=== PATIENT | male | born 1960 | race Caucasian/White ===

== ENCOUNTER 2016-09-11 01:00 | Inpatient (IN) | payer SELFPAY ==
--- NOTE | 2016-09-11 01:38 | ED Physician Documentation ---
General Adult - HISTORIAN Historian: patient - HPI Stated Complaint: left index finger injury Chief Complaint: General Adult Onset: days ago (4) Timing: still present Severity: moderate Further Comments: yes (Pt is a 56 yo male with an infection in his L index finger. Pt got a splinter in his finger 4 days ago and finger has become increasingly swollen and painful since then. Pt is concerned about red streaks from his index finger up to his elbow. No constitutional sx. No fever, no n/v, ) - ROS CONST: no problems EYES/ENT: none CVS/RESP: none GI/: none MS/SKIN/LYMPH: other (infection in L index finger) - PAST HX Past History: none Allergies/Adverse Reactions: Allergies Allergy/AdvReac Type Severity Reaction Status Date / Time No Known Allergies Allergy Verified 02/24/16 15:42 Home Medications: Ambulatory Orders Medication Instructions Recorded NK [NK] 02/24/16 - SOCIAL HX Smoking History: non-smoker - FAMILY HX Family History: No - VITAL SIGNS Vital Signs: Vital Signs Temp Pulse Resp BP Pulse Ox 97.7 F 67 16 136/88 99 09/11/16 01:01 09/11/16 01:01 09/11/16 01:01 09/11/16 01:01 09/11/16 01:01 - REVIEWED ASSESSMENTS Nursing Assessment Reviewed: Yes Vitals Reviewed: Yes Progress - Progress Progress: wbc=14.0 Infection L index finger, streaking to elbow Admit to Dr. Flynn. Will start Vancomycin. ED Results Lab/Radiology - Orders Orders: ED Orders Category Date Time Status BLOOD CULTURE Stat Lab 09/11/16 Ordered CBC/PLATELET/DIFF Routine Lab 09/11/16 Ordered CMP Routine Lab 09/11/16 Ordered Doxycycline Monohydrate [Vibramycin] Med 09/11/16 01:16 Discontinued 100 mg PO NOW ONE General Adult Physical Exam - PHYSICAL EXAM GENERAL APPEARANCE: no distress NECK: normal inspection, supple RESPIRATORY: no resp distress, chest non-tender, breath sounds normal CVS: reg rate & rhythm, heart sounds normal BACK: normal inspection SKIN: other (swelling in L index finger, with streaking from tip of finger to elbow.) EXTREMITIES: normal range of motion, tenderness NEURO: oriented X3, motor nml, sensation nml Discharge Clincal Impression: L index finger infection with sepsis Referrals: Primary Doctor,No [Primary Care Provider] - Home Medications: Ambulatory Orders NK [NK] 02/24/16 Condition: Stable Disposition: 09 ADMITTED INPATIENT Decision to Admit: [id number] Decision Time: 02:54
[2016-09-11 01:58] LABS: BASOPHILS % 0.4 (0.0-1.5); EOSINOPHILS % 1.2 % (0.0-6.8); LYMPHOCYTES # 2.2 # k/uL (0.6-4.0); MEAN CORPUSCULAR HEMOGLOBIN 30.6 pg (28.0-34.0); MONOCYTES % 6.9 % (0.0-11.0); NEUTROPHILS # 10.4 # k/uL (1.4-7.7)
[2016-09-11 02:12] LABS: eGFR (African) > 60; eGFR (Non-African) > 60
[2016-09-11] MEDS ORDERED: PHARMACY KEY 1 EACH EACH MC ONE (02:46)
[2016-09-11] MEDS ORDERED: 0.9 % SODIUM CHLORIDE 250 ML IV ONE (02:51)
[2016-09-11] MEDS: VANCOMYCIN HCL 1 GM in 0.9 % SODIUM CHLORIDE 500 ML IV ONE (03:03)
[2016-09-11] MEDS: DOXYCYCLINE MONOHYDRATE 100 MG CAPSULE PO ONE (03:04)
[2016-09-11 03:48] VITALS: BMI 24.4
[2016-09-11] MEDS: DIPH,PERTUSS(ACELL),TET VAC/PF 0.5 ML DISP.SYRIN IM ONE (04:00)
[2016-09-11] MEDS ORDERED: SALINE FLUSH 10 ML DISP.SYRIN IVF ONE (04:52)
--- NOTE | 2016-09-11 09:14 | History and Physical Report ---
History of Present Illnes - History of Present Illness Reason for Visit: cellulitis of left index finger History of Present Illness: This is a 56 year old male admitted with cellulitis of the left index finger. He was noted to have lymphangetic streaks, fever and an elevated white count last night. He has had blood cultures done which are pending. He does not have any wound cultures. - Past Medical History Cardiac: denies: AFIB, CAD, CHF, HTN, [place] Pulmonary: denies: Asthma [employer]ATOR: denies: Carpal Tunnel Syndrome, CVA Gastrointestinal: denies: Constipation, Diverticulosis Heme/Onc: denies: Anemia NOS Hepatobiliary: denies: Cirrhosis Psych: denies: Anxiety Musculoskeletal: denies: Chronic low back pain Rheumatologic: denies: Fibromyalgia Infectious Disease: denies: Bacterial vaginosis ENT: denies: Sinusitis Renal/: denies: Chronic renal insuff Endocrine: denies: Diabetes Dermatology: Eczema - Past Surgical History Past Surgical History: None - Past Social History Smoke: No Alcohol: None Drugs: None Lives: Alone Domestic Violence: Negative - Health Maintenance Health Maintenance: Tetanus Influenza Vaccine: Current for this Influenza Season Pneumonia Vaccine: Yes Resuscitation Status: Resusciation Status Resuscitation Status Full Code - Unable to Obtain History Unable to Obtain: No Review of Systems - Review of Systems Constitutional: Fever, Chills, Sweats. negative: Weakness, Malaise Eyes: pain (left index finger) ENT: negative: Ear Pain, Ear Discharge Respiratory: negative: Cough, Dry, Shortness of Breath Cardiovascular: negative: Chest Pain, Palpitations Gastrointestinal: negative: Nausea, Vomiting Genitourinary: negative: Dysuria, Frequency Musculoskeletal: negative: Neck Pain, Shoulder Pain Skin: negative: Rash Neurological: negative: Weakness, Numbness, Incoordination - Medications/Allergies Allergies/Adverse Reactions: Allergies Allergy/AdvReac Type Severity Reaction Status Date / Time No Known Allergies Allergy Verified 02/24/16 15:42 Current Inpatient Medications: Current Inpatient Medications Diphtheria/Tetanus/Acell Pertussis (Adacel) 0.5 ml IM .ONCE ONE Stop: 09/11/16 03:55 Last Admin: 09/11/16 04:00 Dose: 0.5 ml Vancomycin HCl 1 gm/ Sodium (Chloride) 500 mls @ 250 mls/hr IV NOW ONE Stop: 09/11/16 11:59 Exam - Exam Vital Signs: Vital Signs (72 hours) 09/11/16 09/11/16 03:33 03:45 Temperature 98.5 F Pulse Rate [ 74 69 Pulse ox] Respiratory 16 16 Rate Blood Pressure 135/84 141/82 [Right Arm] O2 Sat by Pulse 99 99 Oximetry General: Alert, Oriented to Person, Oriented to Place, Oriented to Time HEENT: Atraumatic, PERRLA, EOMI Neck: No: Stridor Lungs: Clear to auscultation, Normal air movement, Speaks full Sentences Cardiovascular: Regular rate, Normal S1, Normal S2 Murmur: Systolic Murmur, Diastolic Murmur, Rub Abdomen: Normal bowel sounds, Soft Genitourinary: No: Right Inguinal Hernia Male Genitourinary: No: Scrotal Edema Female Genitourinary: No: Prolapse Integumentary: Normal, [place], Warm, Other (streaks have resolved) Extremities: No clubbing, No cyanosis, Other (swelling and bruising around the paronychial area of the left index finger. Streaks have resolved (noted in ER)) Neurological: Normal gait Psych/Mental Status: Mental status NL Assessment/Plan - Assessment/Plan (1) Cellulitis of left index finger Status: Acute Current Visit: Yes Assessment: XR of finger to see if there is some retained splinter fragments Stop Vancomycin Start PO Augmentin Hope for discharge to home today. VTE Assessment - RISK FACTOR SCORE VTE RISK FACTOR SCORES: AGE 40-60 YEARS - RISK VTE LOW RISK: SCORE OF 1 OR LESS (RISK PROXIMAL DVT 0.4%) NO PROPHYLAXIS NEEDED (No prophylaxis needed)
[2016-09-11] MEDS ORDERED: VANCOMYCIN HCL 1 GM in 0.9 % SODIUM CHLORIDE 500 ML IV ONE (10:00)
[2016-09-11] MEDS: AMOXICILLIN/POT 875/125 1 EACH PO SCH (11:04)
--- NOTE | 2016-09-11 13:29 | Discharge Summary ---
DATE OF ADMISSION: September 11, 2016 DATE OF DISCHARGE: September 11, 2016 DIAGNOSES ON THIS HOSPITALIZATION: Cellulitis of left finger. SUMMARIZATION OF ADMISSION HISTORY AND PHYSICAL: This is a 56-year-old male who got a splinter underneath his left finger. He came in because he was febrile and had streaks going up his left arm. He was started initially on IV vancomycin. Blood cultures were obtained. No wound cultures were obtained. He had fairly quick improvement in his symptoms. He defervesced. His white count was 14,000 when it was initially checked. He improved significantly by the afternoon of his admission. He was sent home on Augmentin 875 mg p.o. b.i.d. DISCHARGE CONDITION: He was discharged to home in improved condition. DISCHARGE INSTRUCTIONS: He is to follow up with Dr. Malik in 1 week. Call or return for worsening pain, drainage, streaks going up his arm, fever, chills, or any other changes. He voices understanding of this recommendation. A prescription was called to [facility] for Augmentin 875 mg p.o. b.i.d. [facility]
--- NOTE | 2016-09-11 17:24 | Diagnostic Imaging Report ---
[facility] [id number] [facility].[address] [id number] Report Submission Date: Sep 11, 2016 11:55:06 AM SCOOP FILLER Patient Study Name: BELKIS MOHR Date: Sep 11, 2016 9:31:01 AM SCOOP F[employer]ER Modality Type: CR Gender: M Description: UPPER EXTREMITY : 56 Institution: [facility] Physician: JAKE SYKES Left second finger - three views Clinical history: Pain and swelling. Rule out foreign body. Technique: Examination of the left second finger in palmar, lateral and oblique views demonstrates soft tissue swelling distally. There is no evident fracture and no lytic or blastic lesion. Mild degenerative changes are seen in the interphalangeal joints. Impression: 1. Soft tissue swelling. 2. No fracture. Electronically signed on Sep 11, 2016 11:55:06 AM SCOOP FILLER by: Endy LYN
[2016-09-11 17:49] VITALS: BP 128/83
== END 2016-09-11 15:35 | disposition home or self-care (01) | DRG 603 ==
LOC: ED 01:00 → SOUTH 03:16
PROVIDERS: ADMIT Emergency Medicine; ATTEND Family Medicine
DX: L03.012 Cellulitis of left finger (principal)
CPT/HCPCS: 36415; 73140; 80053; 85025; 87040; 90715; J3370; J7050; J7060; S1016